=== PATIENT | female | born 2000 | race Caucasian/White ===

== ENCOUNTER 2024-07-06 22:44 | Emergency (ER) | payer SELFPAY ==
[~2024-07-06] VITALS: Ht 162.6 cm; Wt 52.2 kg
[2024-07-06 23:01] VITALS: O2SAT 100
[2024-07-06] MEDS ORDERED: ONDANSETRON ODT 4 MG TAB.RAPDIS ONE (23:37)
[2024-07-06] MEDS: ONDANSETRON ODT 4 MG TAB.RAPDIS SL ONE (23:38)
== END 2024-07-07 01:10 | disposition left against medical advice (07) ==
LOC: ER 22:51
DX: R11.2 Nausea with vomiting, unspecified (principal); R51.9 Headache, unspecified; R10.9 Unspecified abdominal pain; F32.A Depression, unspecified
CPT/HCPCS: A4606; A4663; Q0162